=== PATIENT | female | born 1975 | race Caucasian/White ===

== ENCOUNTER → 2020-06-21 09:45 | Outpatient (BNVA) | payer SELFPAY | PROVIDERS: Visit Provider Family Medicine | DX: Z13.6 Encounter for screening for cardiovascular disorders (principal); R03.0 Elevated blood-pressure reading, without diagnosis of hypertension; Z68.39 Body mass index [BMI] 39.0-39.9, adult | CPT/HCPCS: 80053; 80061; 85025; 88175 ==

== ENCOUNTER 2020-08-11 08:41 | Outpatient (CLI) | payer SELFPAY ==
--- NOTE | 2020-08-11 07:30 | MM_ITS ---
WS: [id number] SCREENING DIGITAL MAMMOGRAM WITH CAD HISTORY: screening mammogram COMPARISON: None available. Bilateral CC and MLO views submitted. Computer aided detection analyzed. Breast composition: The breasts are heterogeneously dense, which may obscure small masses. Increased asymmetry in the central lateral RIGHT breast measures 7 mm. On the lateral projection there is scatt ered asymmetries above and below the nipple. There is also asymmetric appearance of the RIGHT axillar y lymph nodes. RIGHT lymph nodes are larger in size. MM/[place] [id number] IMPRESSION: BI-RADS: 0-Incomplete: Need additional imaging evaluation FOLLOW UP: Need Additional Imaging RIGHT breast: Spot compression views (CC and MLO). True ML. Ultrasound to follo w if abnormality persists. Ultrasound evaluation of the RIGHT axillary lymph nodes due to asymmetry.
== END 2020-08-11 08:42 | disposition home or self-care (01) ==
LOC: RADSHAW 08:43
PROVIDERS: Visit Provider Family Medicine
DX: Z12.31 Encounter for screening mammogram for malignant neoplasm of breast (principal); N64.89 Other specified disorders of breast
CPT/HCPCS: 77067

== ENCOUNTER 2020-09-09 14:35 | Outpatient (CLI) | payer SELFPAY ==
--- NOTE | 2020-09-09 13:30 | MM_ITS ---
WS: [id number] ADDITIONAL VIEWS RIGHT BREAST RIGHT breast ultrasound, limited HISTORY: abnormal mammogram COMPARISON: 08/11/2020 Compression views right CC and MLO projection. True ML also submitted. Spot compression views show a slight improvement in the asymmetry of the lateral RIGHT breast anterio rly. There are still dense scattered fibroglandular densities. No distortion. With no remote mammogra ms for comparison these could very well be normal densities for this patient. Axillary lymph nodes ar e not as well seen today. RIGHT breast ultrasound, limited. There are multiple cysts within the upper outer quadrant of the RIGHT breast. Some of these cysts are simple while others are minimally complex. There are no solid masses or distortion. Benign-appearing lymph nodes with normal fatty aurora at the axilla. MM/[place] [id number] IMPRESSION: BI-RADS: 2-Benign FOLLOW-UP: 1 Year Follow-up
--- NOTE | 2020-09-09 14:15 | US_ITS ---
WS: [id number] ADDITIONAL VIEWS RIGHT BREAST RIGHT breast ultrasound, limited HISTORY: abnormal mammogram COMPARISON: 08/11/2020 Compression views right CC and MLO projection. True ML also submitted. Spot compression views show a slight improvement in the asymmetry of the lateral RIGHT breast anterio rly. There are still dense scattered fibroglandular densities. No distortion. With no remote mammogra ms for comparison these could very well be normal densities for this patient. Axillary lymph nodes ar e not as well seen today. RIGHT breast ultrasound, limited. There are multiple cysts within the upper outer quadrant of the RIGHT breast. Some of these cysts are simple while others are minimally complex. There are no solid masses or distortion. Benign-appearing lymph nodes with normal fatty aurora at the axilla. US/US breast RT limited* [id number] IMPRESSION: BI-RADS: 2-Benign FOLLOW-UP: 1 Year Follow-up
== END 2020-09-09 14:36 | disposition home or self-care (01) ==
LOC: RADSHAW 14:38
PROVIDERS: PCP Family Medicine; Visit Provider Family Medicine
DX: R92.8 Other abnormal and inconclusive findings on diagnostic imaging of breast (principal); N60.01 Solitary cyst of right breast
CPT/HCPCS: 76642; 77065